=== PATIENT | female | born 1950 | race Caucasian/White ===

== ENCOUNTER → 2016-06-21 | Outpatient (REF) | payer MEDICARE | LOC: M LAB REF 16:39 | PROVIDERS: ATTEND Internal Medicine Medical Oncology | DX: C92.11 Chronic myeloid leukemia, BCR/ABL-positive, in remission (principal) ==

== ENCOUNTER → 2016-10-24 | Outpatient (REF) | payer MEDICARE | LOC: M LAB REF 13:46 | PROVIDERS: ATTEND Internal Medicine Medical Oncology | DX: C92.10 Chronic myeloid leukemia, BCR/ABL-positive, not having achieved remission (principal) ==

== ENCOUNTER → 2016-10-27 | Outpatient (CLI) | payer MEDICARE ==
[2016-10-27 10:33] LABS: ALBUMIN 3.9 GM/DL (3.2-5.2); ALBUMIN/GLOBULIN RATIO 1.11 (1.00-1.93); ALKALINE PHOSPHATASE 76 U/L (45-117); ALT/SGPT 32 U/L (12-78); ANION GAP 5 MEQ/L (8-16); AST/SGOT 24 U/L (15-37); BLOOD UREA NITROGEN 15 MG/DL (7-18); CALCIUM LEVEL 9.4 MG/DL (8.8-10.2); CARBON DIOXIDE LEVEL 29 MEQ/L (21-32); CHLORIDE LEVEL 109 MEQ/L (98-107); CREATININE FOR GFR 0.77 MG/DL (0.55-1.02); GLOMERULAR FILTRATION RATE > 60.0 (>45); GLUCOSE, FASTING 102 MG/DL (80-110); POTASSIUM SERUM 3.9 MEQ/L (3.5-5.1); SODIUM LEVEL 143 MEQ/L (136-145); TOTAL PROTEIN 7.4 GM/DL (6.4-8.2)
== END ==
LOC: M LAB 09:32
PROVIDERS: ATTEND Internal Medicine Medical Oncology
DX: C50.919 Malignant neoplasm of unspecified site of unspecified female breast (principal)

== ENCOUNTER → 2017-03-14 | Outpatient (REF) | payer MEDICARE | LOC: M LAB REF 18:57 | DX: C92.10 Chronic myeloid leukemia, BCR/ABL-positive, not having achieved remission (principal) | CPT/HCPCS: 88300 ==

== ENCOUNTER → 2017-07-12 | Outpatient (REF) | payer MEDICARE | LOC: M LAB REF 12:52 | DX: C92.10 Chronic myeloid leukemia, BCR/ABL-positive, not having achieved remission (principal) | CPT/HCPCS: 88300 ==

== ENCOUNTER → 2017-11-13 | Outpatient (REF) | payer MEDICARE ==
[2017-11-27 08:37] LABS: BCR/ABL MONITOR CML PATH S/O See Separate Report
== END ==
LOC: M LAB REF 12:55
DX: C92.11 Chronic myeloid leukemia, BCR/ABL-positive, in remission (principal)
CPT/HCPCS: 88300

== ENCOUNTER → 2018-03-18 | Outpatient (REF) | payer MEDICARE ==
[~2018-03-18] MED LIST: ASPI81CH32 PO; CRES20TA PO; LISI-538 PO; METO25TA4 PO; RANI15TA PO; SYNT75TA PO; TASI150C PO
== END ==
LOC: M LAB REF 11:34
PROVIDERS: ATTEND Nurse Practitioner Family
DX: Z51.81 Encounter for therapeutic drug level monitoring (principal); Z79.899 Other long term (current) drug therapy; C92.10 Chronic myeloid leukemia, BCR/ABL-positive, not having achieved remission

== ENCOUNTER → 2019-11-11 | Outpatient (REF) | payer MEDICARE ==
[~2019-11-11] MED LIST changes: +AMLO25TA PO; -ASPI81CH32 PO; +ASPI81CH33 PO; -CRES20TA PO; +CRES20TA2 PO; +D31000TA2 PO; +LEVO88TA3 PO
== END ==
LOC: M LAB REF 19:38
PROVIDERS: ATTEND Internal Medicine
DX: L40.9 Psoriasis, unspecified (principal); Z85.3 Personal history of malignant neoplasm of breast

== ENCOUNTER → 2020-10-21 | Outpatient (CLI) | payer MEDICARE ==
[~2020-10-21] MED LIST changes: +COVI30VI IM; +CYCL-707 PO; +FAMO40TA3 PO; -LISI-538 PO; +LISI20TA33 PO; +MOBI4TAB PO; +NORV5TAB PO
[2020-10-21 16:55] LABS: BASO # 0.1 10^3/uL (0.0-0.2); BASO % 0.8 % (0.0-1.0); EOS # 0.3 10^3/uL (0.0-0.5); EOS % 2.7 % (0.0-3.0); HEMATOCRIT 39.2 % (36.0-47.0); HEMOGLOBIN 12.7 g/dl (12.0-15.5); LYMPH # 2.5 10^3/uL (1.5-5.0); LYMPH % 27.8 % (24.0-44.0); MEAN CORPUSCULAR HEMOGLOBIN 29.2 pg (27.0-33.0); MEAN CORPUSCULAR HGB CONC 32.4 g/dl (32.0-36.5); MEAN CORPUSCULAR VOLUME 90.1 fl (80.0-96.0); MONO # 0.7 10^3/uL (0.0-0.8); MONO % 7.6 % (2.0-8.0); NEUTROPHILS # 5.5 10^3/uL (1.5-8.5); NEUTROPHILS % 60.7 % (36.0-66.0); PLATELET COUNT, AUTOMATED 227 10^3/uL (150-450); RED BLOOD COUNT 4.35 10^6/uL (4.00-5.40); WHITE BLOOD COUNT 9.1 10^3/uL (4.0-10.0)
[2020-10-21 17:27] LABS: BILIRUBIN,TOTAL 0.9 MG/DL (0.2-1.0); CALCIUM LEVEL 9.6 MG/DL (8.8-10.2); CREATININE FOR GFR 1.07 MG/DL (0.55-1.30); GLOMERULAR FILTRATION RATE 53.7 (>39); POTASSIUM SERUM 3.6 MEQ/L (3.5-5.1); TOTAL PROTEIN 7.4 GM/DL (6.4-8.2)
== END ==
LOC: M WUC 14:17
PROVIDERS: ATTEND Internal Medicine Hematology & Oncology
DX: Z85.3 Personal history of malignant neoplasm of breast (principal)

== ENCOUNTER → 2020-12-01 | Outpatient (CLI) | payer MEDICARE ==
--- NOTE | 2020-12-01 15:02 | DEXAMM ---
INDICATION: OTR DISORDER OF BONE DENSITY AND STRUCTURE UNSPEC. COMPARISON: August 21, 2018. TECHNIQUE: Bone density was measured using dual-energy x-ray absorptionmetry (DEXA). FINDINGS: AP SPINE L1-L4 BMD 1.187 g/cm2 Young Adult T-Score 0.1 Age Matched Z-Score 1.8. LT FEMUR, TOTAL BMD 0.919 g/cm2 Young Adult T-Score -0.7 Age Matched Z-Score 0.9. LT NECK BMD 0.954 g/cm2 Young Adult T-Score -0.6 Age Matched Z-Score is 1.2. RT FEMUR, TOTAL BMD 0.817 g/cm2 Young Adult T-Score -1.5 Age Matched Z-Score 0 point. RT NECK BMD 0.885 g/cm2 Young Adult T-Score -1.1 Age Matched Z-Score 0.7. IMPRESSION: There is normal bone density of the spine. There is normal bone density of the left hip. There is low bone density of the right hip. The density of the spine has decreased 2.0% since the initial exam on August 30, 2001. The density of the spine not changed since most recent exam on August 21, 2018. The density of the left hip has decreased 7.8% since initial exam on August 30, 2001. The density of the left hip has increased 2.7% since most recent exam on August 21, 2018. The density of the right hip has decreased 22.9% since the initial exam on August 30, 2001. The density of the right hip has decreased 1.7% since the most recent exam on August 21, 2018. FOLLOW-UP: Recommendation for the next bone density exam: 2 years. <Electronically signed by Gareth Aquino > 12/01/20 [id number]
--- NOTE | 2020-12-01 15:17 | REP ---
INDICATION: SCREEN MAMMO , Historyof right breast cancer with mastectomy. COMPARISON: Multiple TECHNIQUE: Digital mammography was obtained on the left breast in the CC and MLO projections using both 2D and 3D modalities and compared to the prior exams. The patient is status post right mastectomy. By history, the patient has no complaints of a palpable breast abnormality or other significant breast complaints. FINDINGS: The left breast is unchanged in size and shape. There are no nigel soft tissue densities or spiculated masses. There is no internal architectural distortion. Stable benign calcifications are seen. There is no skin thickening or nipple retraction. The Volpara volumetric breast density pattern is b. IMPRESSION: BIRADS/ACR category 2 benign findings. There is no evidence of malignant alteration of the left breast.. This mammogram was interpreted with the aid of an FDA-approved computer-aided detection system. The patient states she had a clinical breast exam in October 2020. The patient letter being requested is M1. RECOMMENDATION: Repeat screening mammography recommended 1 year (for women over 40). <Electronically signed by Arthur Solis > 12/01/20 [id number]
== END ==
LOC: M WHC 13:15
PROVIDERS: ATTEND Internal Medicine
DX: Z12.31 Encounter for screening mammogram for malignant neoplasm of breast (principal); Z90.11 Acquired absence of right breast and nipple; Z85.3 Personal history of malignant neoplasm of breast; M85.852 Other specified disorders of bone density and structure, left thigh; M85.851 Other specified disorders of bone density and structure, right thigh

== ENCOUNTER → 2020-12-06 | Outpatient (REF) | payer MEDICARE ==
[2020-12-06 17:06] LABS: BACTERIA, URINE AUTO NEGATIVE (NEGATIVE); RBC, URINE AUTO 0 /HPF (0-3); SQUAMOUS EPITHELIAL CELL UR AU 1 /HPF (0-6); WBC, URINE AUTO 1 /HPF (0-3)
== END ==
LOC: M LAB REF 16:43
PROVIDERS: ATTEND Internal Medicine
DX: R31.9 Hematuria, unspecified (principal)

== ENCOUNTER → 2021-01-14 | Outpatient (CLI) | payer MEDICARE ==
--- NOTE | 2021-01-14 11:27 | REP ---
INDICATION: PAIN. COMPARISON: None. TECHNIQUE: Three views of the right hip were obtained. FINDINGS: No fracture or dislocation is noted. Extensive loss of articular cartilage in the right hip joint is noted with eburnation of the adjacent articular surfaces and hypertrophic changes and subchondral cyst formation about the acetabulum and head of the right femur. 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 <Electronically signed by Corby Degroot > 01/14/21 [id number]
--- NOTE | 2021-01-14 11:48 | REP ---
INDICATION: PAIN. COMPARISON: None. TECHNIQUE: Multiple views FINDINGS: Vertebral body height is within normal limits. There does appear to be a minimal grade 1 L4 upon L5 spondylolisthesis. There is moderate posterior disc space narrowing at every level. There is mild anterior lipping at every level. Degenerative facet joint changes are present bilaterally at every level. There is no evidence of definite spondylolysis. Marginal osteophytes are seen bilaterally at every level. The pedicles are intact bilaterally. Advanced degenerative changes are seen involving the imaged portion of the right hip with more moderate to severe left hip degenerative changes are identified. The hip joint spaces are seen in a minimal fashion IMPRESSION: Chronic changes as described above. <Electronically signed by Arthur Solis > 01/14/21 [id number]
== END ==
LOC: M WUC 10:59
PROVIDERS: ATTEND Internal Medicine
DX: M51.36 Other intervertebral disc degeneration, lumbar region (principal); M16.0 Bilateral primary osteoarthritis of hip; R52 Pain, unspecified

== ENCOUNTER → 2021-11-09 | Outpatient (CLI) | payer MEDICARE ==
[~2021-11-09] MED LIST changes: -D31000TA2 PO; +VITA100093 PO
[2021-11-09 12:52] LABS: INR 0.87; PROTHROMBIN TIME 12.3 SECONDS (12.7-14.5)
== END ==
LOC: M WUC 11:29
PROVIDERS: ATTEND Internal Medicine
DX: Z01.818 Encounter for other preprocedural examination (principal)

== ENCOUNTER → 2022-03-13 | Outpatient (CLI) | payer MEDICARE | LOC: M WHC 13:07 | PROVIDERS: ATTEND Internal Medicine | DX: Z12.31 Encounter for screening mammogram for malignant neoplasm of breast (principal) ==

== ENCOUNTER 2022-06-15 12:10 | Day surgery (SDC) | payer MEDICARE ==
[~2022-06-15] VITALS: Ht 154.9 cm; Wt 57.2 kg
[~2022-06-15 12:10] MED LIST changes: +NS 1,000 ML IV ONE
[2022-06-15] MEDS ORDERED: fentaNYL 100 MCG/2 ML INJECTION As Ordered ONE (13:46)
[2022-06-15] MEDS ORDERED: LIDOCAINE 2% 100MG/5ML SDV (FOR ANES.) As Ordered ONE (13:46)
[2022-06-15] MEDS ORDERED: propofoL 500 MG/50 ML VIAL As Ordered ONE (13:46)
[2022-06-15 14:31] VITALS: BP 148/70
== END 2022-06-15 15:02 | disposition home or self-care (01) ==
LOC: M OPP 12:10
PROVIDERS: ATTEND Surgery
DX: D12.2 Benign neoplasm of ascending colon (principal); R63.4 Abnormal weight loss; K44.9 Diaphragmatic hernia without obstruction or gangrene; K21.00 Gastro-esophageal reflux disease with esophagitis, without bleeding; K31.89 Other diseases of stomach and duodenum; Z86.010 Personal history of colon polyps; C92.11 Chronic myeloid leukemia, BCR/ABL-positive, in remission; N18.30 Chronic kidney disease, stage 3 unspecified; E03.9 Hypothyroidism, unspecified; Z85.3 Personal history of malignant neoplasm of breast; Z92.21 Personal history of antineoplastic chemotherapy; Z92.3 Personal history of irradiation; Z79.02 Long term (current) use of antithrombotics/antiplatelets; Z79.890 Hormone replacement therapy; Z79.899 Other long term (current) drug therapy; Z80.1 Family history of malignant neoplasm of trachea, bronchus and lung; Z80.3 Family history of malignant neoplasm of breast; Z80.42 Family history of malignant neoplasm of prostate
CPT/HCPCS: 43239; 45385; 88305; J3010

== ENCOUNTER → 2023-04-03 | Outpatient (CLI) | payer MEDICARE ==
[~2023-04-03] MED LIST changes: -NS 1,000 ML IV ONE
== END ==
LOC: M WHC 14:26
PROVIDERS: ATTEND Internal Medicine
DX: Z12.31 Encounter for screening mammogram for malignant neoplasm of breast (principal)
CPT/HCPCS: 77067; G0279

== ENCOUNTER → 2023-10-08 | Outpatient (CLI) | payer MEDICARE | LOC: M WHC 12:24 | PROVIDERS: ATTEND Internal Medicine | DX: Z13.820 Encounter for screening for osteoporosis (principal); M85.89 Other specified disorders of bone density and structure, multiple sites ==

== ENCOUNTER → 2024-04-11 | Outpatient (REF) | payer MEDICARE ==
[~2024-04-11] MED LIST changes: +BACT800T5 PO; +CRES40TA PO
== END ==
LOC: M LAB REF 12:49
PROVIDERS: ATTEND Internal Medicine
DX: R10.9 Unspecified abdominal pain (principal)

== ENCOUNTER → 2024-05-08 | Outpatient (CLI) | payer MEDICARE ==
[~2024-05-08] MED LIST changes: +ISOVUE-370 76% 100ML VIAL As Ordered ONE
== END ==
LOC: M RAD 07:15
PROVIDERS: ATTEND Internal Medicine
DX: R63.4 Abnormal weight loss (principal); R10.9 Unspecified abdominal pain
CPT/HCPCS: 74177; Q9967

== ENCOUNTER → 2024-05-15 | Outpatient (CLI) | payer MEDICARE ==
[~2024-05-15] MED LIST changes: -ISOVUE-370 76% 100ML VIAL As Ordered ONE
== END ==
LOC: M PLARAD 13:08
PROVIDERS: ATTEND Internal Medicine
DX: G31.84 Mild cognitive impairment of uncertain or unknown etiology (principal); R90.89 Other abnormal findings on diagnostic imaging of central nervous system

== ENCOUNTER → 2024-05-29 | Outpatient (CLI) | payer MEDICARE | LOC: M WHC 12:56 | PROVIDERS: ATTEND Internal Medicine | DX: Z12.31 Encounter for screening mammogram for malignant neoplasm of breast (principal); Z85.3 Personal history of malignant neoplasm of breast | CPT/HCPCS: 77067; G0279 ==

== ENCOUNTER → 2024-06-30 | Outpatient (CLI) | payer MEDICARE ==
[2024-06-30 15:06] LABS: BASO # 0.1 10^3/uL (0.0-0.2); BASO % 0.8 % (0.0-1.0); EOS # 0.1 10^3/uL (0.0-0.5); HEMATOCRIT 37.1 % (36.0-47.0); HEMOGLOBIN 12.3 g/dl (12.0-15.5); LYMPH # 1.6 10^3/uL (1.5-5.0); LYMPH % 20.8 % (24.0-44.0); MEAN CORPUSCULAR HEMOGLOBIN 30.4 pg (27.0-33.0); MEAN CORPUSCULAR HGB CONC 33.2 g/dl (32.0-36.5); MEAN CORPUSCULAR VOLUME 91.8 fl (80.0-96.0); MONO # 0.6 10^3/uL (0.0-0.8); MONO % 8.2 % (2.0-8.0); NEUTROPHILS # 5.4 10^3/uL (1.5-8.5); NEUTROPHILS % 68.7 % (36.0-66.0); PLATELET COUNT, AUTOMATED 218 10^3/uL (150-450); RED BLOOD COUNT 4.04 10^6/uL (4.00-5.40); WHITE BLOOD COUNT 7.8 10^3/uL (4.0-10.0)
[2024-06-30 15:15] LABS: ERYTHROCYTE SEDIMENTATION RATE 13 mm/hr (0-30)
[2024-06-30 15:37] LABS: ALKALINE PHOSPHATASE 47 U/L (35-104); ALT/SGPT 55 U/L (7.0-40); AST/SGOT 33 U/L (<34); BILIRUBIN,TOTAL 0.7 MG/DL (0.3-1.2); BLOOD UREA NITROGEN 23 MG/DL (9-23); CALCIUM LEVEL 10.1 MG/DL (8.3-10.6); CARBON DIOXIDE LEVEL 29 MMOL/L (20-31); CHLORIDE LEVEL 107 MMOL/L (98-107); CREATININE FOR GFR 1.11 MG/DL (0.55-1.30); GLOMERULAR FILTRATION RATE 51.8 (>39); GLUCOSE, FASTING 95 MG/DL (74-106); POTASSIUM SERUM 4.3 MMOL/L (3.5-5.1); SODIUM LEVEL 143 MMOL/L (136-145); TOTAL PROTEIN 6.9 G/DL (5.7-8.2)
[2024-06-30 15:38] LABS: FOLATE 13.66 NG/ML (>5.4); THYROID STIMULATING HORMONE 1.661 uIU/ML (0.55-4.78)
[2024-06-30 15:39] LABS: VITAMIN B12 LEVEL 490 PG/ML (211-911)
[2024-06-30 18:10] LABS: RHEUMATOID FACTOR QUANT < 3.5 IU/ML (<14)
[2024-07-03 14:07] LABS: ANA PATTERN Nuclear, Centromere (NEGATIVE); ANA PATTERN 2 Nuclear, Homogeneous; ANA SCREEN, IFA POSITIVE (NEGATIVE)
== END ==
LOC: M LAB 14:27
PROVIDERS: ATTEND Psychiatry & Neurology Neurology
DX: R41.89 Other symptoms and signs involving cognitive functions and awareness (principal); Z79.899 Other long term (current) drug therapy